=== PATIENT | female | born 1950 | race Two or more races ===

== ENCOUNTER → 2018-05-20 | Outpatient (CLI) | payer MEDICAID, OTHER ==
[~2018-05-20] MED LIST: OXAZEPAM
[2018-05-20 09:55] LABS: Urine Bacteria FEW /hpf (None Seen); Urine Blood Negative /uL (Negative); Urine Specific Gravity 1.015 (1.001-1.035); Urine WBC 16 /hpf (0 - 5)
[2018-05-20 09:56] LABS: Basophils # (auto) 0.1 uL; Basophils % (auto) 0.8 % (0.0-2.0); Eosinophils # (auto) 0.2 uL; Eosinophils % (auto) 3.3 % (0.0-7.0); Hematocrit 42.6 % (36.0-46.0); Hemoglobin 14.1 g/dL (12.2-16.2); Lymphocytes # (auto) 1.5 uL; Lymphocytes % (auto) 20.9 % (10.0-50.0); Mean Corpuscular Hemoglobin 29.8 pg (28.0-32.0); Mean Corpuscular Volume 90.4 fL (80.0-100.0); Monocytes # (auto) 0.4 uL; Monocytes % (auto) 5.8 % (0.0-12.0); Neutrophils % (auto) 69.2 % (37.0-80.0); Nucleated Red Blood Cells % 0.1 %; Platelet Count (auto) 275 10^3/uL (140-450); Red Blood Cells 4.72 10^6/uL (4.0-5.20); Red Cell Distribution Width 13.8 % (11.8-14.3); White Blood Cell 7.3 10^3/uL (4.4-10.8)
[2018-05-20 10:08] LABS: Calcium 9.3 mg/dL (8.5-10.1); Potassium 4.4 mmol/L (3.5-5.1)
[2018-05-20 10:09] LABS: Alcohol, Urine < 3.0 mg/dL (0-5); Amphetamine Screen, Urine NEGATIVE (NEGATIVE); Barbiturate Scree,Urine NEGATIVE (NEGATIVE); Benzodiazephine Screen, Urine POSITIVE (NEGATIVE); Cannabinoid Screen, Urine NEGATIVE (NEGATIVE); Opiate Scree,Urine NEGATIVE (NEGATIVE); Phencyclidine Screen, Urine NEGATIVE (NEGATIVE)
[2018-05-20 10:12] LABS: BUN/Creatinine Ratio 23.9; Bilirubin, Total 0.3 mg/dL (0.2-1.0)
[2018-05-20 10:16] LABS: Cocaine Screen, Urine NEGATIVE (NEGATIVE)
[2018-05-20 10:36] LABS: Folate (Folic Acid) 19.11 ng/mL (5.38-24)
== END | disposition home or self-care (01) ==
LOC: LAB 09:20
PROVIDERS: ATTEND Internal Medicine
DX: Z00.00 Encounter for general adult medical examination without abnormal findings (principal); I10 Essential (primary) hypertension; M54.5 Low back pain
CPT/HCPCS: 36415; 80053; 80061; 80307; 81001; 82607; 82746; 83036; 84439; 84443; 85025

== ENCOUNTER 2020-09-28 13:00 | Inpatient (IN) | payer OTHER ==
[~2020-09-28] VITALS: Ht 152.4 cm; Wt 82.6 kg
[2020-09-28] MEDS ORDERED: IPRATROPIUM BROM 0.5 MG/2.5ML INH SOL NEB ONE (13:30)
[2020-09-28] MEDS ORDERED: MAGNESIUM SULFATE 1GM/100ML 100 ML IV ONE (13:30)
[2020-09-28] MEDS ORDERED: methylPREDNISolone SOD SUCC 125 MG/2 ML VL IV ONE (13:30)
[2020-09-28] MEDS ORDERED: ALBUTEROL SULF 2.5 MG/0.5ML(0.5%) NEB SOLN NEB ONE (13:30)
[2020-09-28 13:56] LABS: Basophils # (auto) 0 10 ^3/uL (0-0.2); Eosinophils # (auto) 0 10 ^3/uL (0-0.8); Hemoglobin 10.3 g/dL (12.2-16.2); Nucleated Red Blood Cells % 0.1 %; Red Cell Distribution Width 17.5 % (11.8-14.3)
[2020-09-28 13:57] LABS: Basophils % (auto) 0.5 % (0.0-2.0); Eosinophils % (auto) 0.4 % (0.0-7.0); Hematocrit 32.2 % (36.0-46.0); Lymphocytes # (auto) 0.7 10 ^3/uL (0.4-5.4); Lymphocytes % (auto) 6.8 % (10.0-50.0); Mean Corpuscular Hemoglobin 25.9 pg (28.0-32.0); Mean Corpuscular Hgb Conc. 32.1 g/dL (32.0-36.0); Mean Corpuscular Volume 80.8 fL (80.0-100.0); Monocytes # (auto) 0.6 10 ^3/uL (0-1.3); Monocytes % (auto) 6.1 % (0.0-12.0); Neutrophils # (auto) 8.8 10 ^3/uL (1.6-8.6); Neutrophils % (auto) 86.2 % (37.0-80.0); Red Blood Cells 3.98 10^6/uL (4.0-5.20); White Blood Cell 10.2 10^3/uL (4.4-10.8)
[2020-09-28 14:19] LABS: Alanine Aminotransferase 38 U/L (13-56); Albumin 3.3 g/dL (3.4-5.0); Anion Gap 4 (5-15); Blood Urea Nitrogen 15 mg/dL (7-18); Calcium 7.9 mg/dL (8.5-10.1); Carbon Dioxide 29 mmol/L (21-32); Chloride 103 mmol/L (98-107); Glucose 112 mg/dL (74-106); Potassium 4.5 mmol/L (3.5-5.1); Sodium 136 mmol/L (136-145)
[2020-09-28 14:28] LABS: Alkaline Phosphatase 70 U/L (45-117); Aspartate Aminotransferase 19 U/L (15-37); BUN/Creatinine Ratio 15.3; Bilirubin, Total 0.3 mg/dL (0.2-1.0); CRP High Sensitivity 2.49 mg/dL (< 0.3); GFR African American 72 mL/min; GFR Non-African American 59 mL/min; Total Protein 7.7 g/dL (6.4-8.2)
[2020-09-28 14:32] LABS: Urine WBC None Seen /hpf (0 - 5)
[2020-09-28 14:44] LABS: Urine Bacteria FEW /hpf (None Seen); Urine Blood Negative /uL (Negative); Urine Specific Gravity 1.014 (1.001-1.035)
[2020-09-28] MEDS ORDERED: FUROSEMIDE 40 MG/4 ML VIAL IV ONE (17:30)
[2020-09-28] MEDS ORDERED: ENOXAPARIN SOD 80 MG/0.8ML SYRINGE SC ONE (17:30)
[2020-09-28] MEDS ORDERED: IOHEXOL 350 MG/ML 100ML IJ ONE (18:42)
[2020-09-28] MEDS ORDERED: MORPHINE SULF INJ 2 MG/ML SYRINGE 1ML IV PRN (18:45)
[2020-09-28] MEDS ORDERED: NITROGLYCERIN 0.4 MG SL TAB SL PRN (18:45)
[2020-09-28] MEDS ORDERED: ALBUTEROL SULF 2.5 MG/0.5ML(0.5%) NEB SOLN NEB PRN (19:15)
[2020-09-28] MEDS ORDERED: ONDANSETRON HCL 4 MG/2 ML VIAL IV PRN (19:15)
[2020-09-28] MEDS ORDERED: DEXTROSE (50%) 50ML SYRG IV PRN (19:15)
[2020-09-28] MEDS ORDERED: traMADol HCL 50 MG TAB PO PRN (19:15)
[2020-09-28] MEDS ORDERED: levoFLOXacin 500MG 100 ML IV ONE (19:15)
[2020-09-28] MEDS ORDERED: LACTULOSE 20Gm/30ML SOLN PO PRN ×2 (19:15)
[2020-09-28] MEDS ORDERED: ACETAMINOPHEN 500 MG TAB PO PRN (19:15)
[2020-09-28 19:41] VITALS: BP 113/80
[2020-09-28 22:00] VITALS: BP 115/60
[2020-09-28] MEDS ORDERED: SODIUM CHLOR 0.9% PF (SALINE LOCK) 10ML VIAL/SYR IV SCH (22:00)
[2020-09-28] MEDS: SODIUM CHLOR 0.9% PF (SALINE LOCK) 10ML VIAL/SYR IV SCH (22:00)
[2020-09-28] MEDS: ACCU-CHEK COMFORT CURVE STRIP VI SCH (22:00)
[2020-09-28 22:31] VITALS: BP 139/65
[2020-09-28] MEDS: ATORVASTATIN 20 MG TAB PO SCH (23:42)
[2020-09-28] MEDS: FAMOTIDINE 20 MG TAB PO SCH (23:42)
[2020-09-28] MEDS: CARVEDILOL 3.125 MG TAB PO SCH (23:43)
[2020-09-28] MEDS: IPRATROPIUM BROM 0.5 MG/2.5ML INH SOL NEB SCH (23:43)
[2020-09-28] MEDS: ALBUTEROL SULF 2.5 MG/0.5ML(0.5%) NEB SOLN NEB SCH (23:44)
[2020-09-29] MEDS ORDERED: PNEUMOCOCCAL VACC POLYS 25 MCG/0.5 ML VIAL IM ONE (02:00)
[2020-09-29 05:00] VITALS: BP 129/63
[2020-09-29 05:43] LABS: Basophils # (auto) 0 10 ^3/uL (0-0.2); Eosinophils # (auto) 0 10 ^3/uL (0-0.8); Hemoglobin 10.3 g/dL (12.2-16.2); Lymphocytes # (auto) 0.5 10 ^3/uL (0.4-5.4); Monocytes # (auto) 0.2 10 ^3/uL (0-1.3); White Blood Cell 7.7 10^3/uL (4.4-10.8)
[2020-09-29 05:45] LABS: Basophils % (auto) 0.3 % (0.0-2.0); Hematocrit 31.3 % (36.0-46.0); Mean Corpuscular Hemoglobin 26.6 pg (28.0-32.0); Mean Corpuscular Volume 80.7 fL (80.0-100.0); Monocytes % (auto) 3.2 % (0.0-12.0); Neutrophils % (auto) 90.5 % (37.0-80.0); Nucleated Red Blood Cells % 0.2 %; Red Blood Cells 3.88 10^6/uL (4.0-5.20); Red Cell Distribution Width 17.3 % (11.8-14.3)
[2020-09-29] MEDS: SODIUM CHLOR 0.9% PF (SALINE LOCK) 10ML VIAL/SYR IV SCH ×3 (05:51→22:11)
[2020-09-29 06:10] LABS: Chloride 102 mmol/L (98-107); Potassium 4.2 mmol/L (3.5-5.1); Sodium 136 mmol/L (136-145)
[2020-09-29 06:19] LABS: Alanine Aminotransferase 31 U/L (13-56); Albumin 2.9 g/dL (3.4-5.0); Alkaline Phosphatase 63 U/L (45-117); Anion Gap 5 (5-15); Aspartate Aminotransferase 14 U/L (15-37); BUN/Creatinine Ratio 19.8; Bilirubin, Total 0.2 mg/dL (0.2-1.0); Blood Urea Nitrogen 23 mg/dL (7-18); Calcium 7.9 mg/dL (8.5-10.1); Carbon Dioxide 29 mmol/L (21-32); GFR African American 59 mL/min; GFR Non-African American 49 mL/min; Glucose 146 mg/dL (74-106)
[2020-09-29] MEDS: ACCU-CHEK COMFORT CURVE STRIP VI SCH ×4 (06:44→22:13)
[2020-09-29] MEDS: ALBUTEROL SULF 2.5 MG/0.5ML(0.5%) NEB SOLN NEB SCH ×3 (06:59→19:35)
[2020-09-29] MEDS: IPRATROPIUM BROM 0.5 MG/2.5ML INH SOL NEB SCH ×3 (07:01→19:35)
[2020-09-29 08:00] VITALS: BP 129/77
[2020-09-29 09:00] VITALS: BP 129/77
[2020-09-29] MEDS ORDERED: NITROGLYCERIN 0.2MG/HR TOPICAL PATCH TD SCH (10:00)
[2020-09-29] MEDS ORDERED: ENOXAPARIN SOD 40 MG/0.4 ML SYRINGE SC SCH (10:00)
[2020-09-29] MEDS: FUROSEMIDE 40 MG/4 ML VIAL IV SCH (10:56)
[2020-09-29] MEDS: levoFLOXacin 500MG 100 ML IV SCH (10:56)
[2020-09-29] MEDS: FAMOTIDINE 20 MG TAB PO SCH ×2 (10:57→22:13)
[2020-09-29] MEDS: ASPirin 81 mg TAB PO SCH (10:57)
[2020-09-29] MEDS: POTASSIUM CHL 20 Meq TABLET PO SCH (10:57)
[2020-09-29] MEDS: CARVEDILOL 3.125 MG TAB PO SCH ×2 (10:57→22:12)
[2020-09-29] MEDS: ENALAPRIL MALEATE 2.5 MG TAB PO SCH (10:58)
[2020-09-29] MEDS: ENOXAPARIN SOD 40 MG/0.4 ML SYRINGE SC SCH (10:59)
[2020-09-29] MEDS ORDERED: OME20GT GT (11:27)
[2020-09-29] MEDS ORDERED: LOSA25TA38 PO (11:27)
[2020-09-29] MEDS ORDERED: ESCI-34 PO (11:27)
[2020-09-29] MEDS ORDERED: MIRT-66 PO (11:27)
[2020-09-29] MEDS ORDERED: AMLO-489 PO (12:25)
[2020-09-29] MEDS ORDERED: TRIA75TA55 PO (12:25)
[2020-09-29 13:00] VITALS: BP 118/60
[2020-09-29 17:00] VITALS: BP 114/63
[2020-09-29] MEDS ORDERED: CITALOPRAM HYDROBR 20 MG TAB PO ONE ×3 (17:00→17:15)
[2020-09-29 22:00] VITALS: BP 136/66
[2020-09-29] MEDS: MIRTAZAPINE 30 MG TAB PO SCH (22:11)
[2020-09-29] MEDS: ATORVASTATIN 20 MG TAB PO SCH (22:13)
[2020-09-30] MEDS: IPRATROPIUM BROM 0.5 MG/2.5ML INH SOL NEB SCH ×5 (00:20→23:56)
[2020-09-30] MEDS: ALBUTEROL SULF 2.5 MG/0.5ML(0.5%) NEB SOLN NEB SCH ×5 (00:20→23:55)
[2020-09-30 05:00] VITALS: BP 116/59
[2020-09-30] MEDS: SODIUM CHLOR 0.9% PF (SALINE LOCK) 10ML VIAL/SYR IV SCH ×3 (06:03→22:11)
[2020-09-30] MEDS: ACCU-CHEK COMFORT CURVE STRIP VI SCH ×4 (06:51→22:13)
[2020-09-30 09:00] VITALS: BP 132/73
[2020-09-30] MEDS ORDERED: TRIATAB3 PO (10:33)
[2020-09-30] MEDS ORDERED: OMEP-263 PO (10:33)
[2020-09-30] MEDS ORDERED: OMEGCAP2 PO (10:33)
[2020-09-30] MEDS ORDERED: ATOR10TA PO (10:33)
[2020-09-30] MEDS: FUROSEMIDE 40 MG/4 ML VIAL IV SCH ×2 (10:35→18:05)
[2020-09-30] MEDS: ASPirin 81 mg TAB PO SCH (10:36)
[2020-09-30] MEDS: ENOXAPARIN SOD 40 MG/0.4 ML SYRINGE SC SCH (10:36)
[2020-09-30] MEDS: levoFLOXacin 500MG 100 ML IV SCH (10:36)
[2020-09-30] MEDS: ENALAPRIL MALEATE 2.5 MG TAB PO SCH (10:37)
[2020-09-30] MEDS: FAMOTIDINE 20 MG TAB PO SCH ×2 (10:37→22:11)
[2020-09-30] MEDS: CARVEDILOL 3.125 MG TAB PO SCH ×2 (10:37→22:12)
[2020-09-30] MEDS: CITALOPRAM HYDROBR 20 MG TAB PO SCH (10:37)
[2020-09-30] MEDS: POTASSIUM CHL 20 Meq TABLET PO SCH (10:38)
[2020-09-30] MEDS ORDERED: AMLO-496 PO (10:44)
[2020-09-30 13:00] VITALS: BP 139/70
[2020-09-30 14:38] LABS: INR 1.03 (0.9-1.15)
[2020-09-30 17:00] VITALS: BP 122/71
[2020-09-30 22:00] VITALS: BP 147/68
[2020-09-30] MEDS: ATORVASTATIN 20 MG TAB PO SCH (22:11)
[2020-09-30] MEDS: MIRTAZAPINE 30 MG TAB PO SCH (22:11)
[2020-10-01 05:00] VITALS: BP 125/67
[2020-10-01] MEDS: SODIUM CHLOR 0.9% PF (SALINE LOCK) 10ML VIAL/SYR IV SCH ×3 (06:01→21:42)
[2020-10-01 06:07] LABS: Calcium 8.2 mg/dL (8.5-10.1); Potassium 3.7 mmol/L (3.5-5.1)
[2020-10-01] MEDS: FUROSEMIDE 40 MG/4 ML VIAL IV SCH ×2 (06:22→17:26)
[2020-10-01] MEDS: ALBUTEROL SULF 2.5 MG/0.5ML(0.5%) NEB SOLN NEB SCH ×3 (06:53→18:59)
[2020-10-01] MEDS: IPRATROPIUM BROM 0.5 MG/2.5ML INH SOL NEB SCH ×3 (06:53→18:59)
[2020-10-01] MEDS: ACCU-CHEK COMFORT CURVE STRIP VI SCH ×4 (07:00→21:42)
[2020-10-01 09:00] VITALS: BP 136/71
[2020-10-01] MEDS: ENOXAPARIN SOD 40 MG/0.4 ML SYRINGE SC SCH (10:40)
[2020-10-01] MEDS: levoFLOXacin 500MG 100 ML IV SCH (10:41)
[2020-10-01] MEDS: ASPirin 81 mg TAB PO SCH (10:41)
[2020-10-01] MEDS: POTASSIUM CHL 20 Meq TABLET PO SCH (10:41)
[2020-10-01] MEDS: ENALAPRIL MALEATE 2.5 MG TAB PO SCH (10:42)
[2020-10-01] MEDS: FAMOTIDINE 20 MG TAB PO SCH ×2 (10:42→21:41)
[2020-10-01] MEDS: CITALOPRAM HYDROBR 20 MG TAB PO SCH (10:43)
[2020-10-01] MEDS: CARVEDILOL 3.125 MG TAB PO SCH ×2 (10:44→21:41)
[2020-10-01 13:00] VITALS: BP 159/74
[2020-10-01 17:00] VITALS: BP 134/69
[2020-10-01] MEDS: ATORVASTATIN 20 MG TAB PO SCH (21:41)
[2020-10-01] MEDS: MIRTAZAPINE 30 MG TAB PO SCH (21:41)
[2020-10-01 22:00] VITALS: BP 142/70
[2020-10-02] MEDS: IPRATROPIUM BROM 0.5 MG/2.5ML INH SOL NEB SCH ×2 (00:36→07:06)
[2020-10-02] MEDS: ALBUTEROL SULF 2.5 MG/0.5ML(0.5%) NEB SOLN NEB SCH ×2 (00:36→07:06)
[2020-10-02 01:57] VITALS: BP 142/70
[2020-10-02 05:00] VITALS: BP 130/67
[2020-10-02] MEDS: FUROSEMIDE 40 MG/4 ML VIAL IV SCH (05:40)
[2020-10-02] MEDS: SODIUM CHLOR 0.9% PF (SALINE LOCK) 10ML VIAL/SYR IV SCH ×2 (05:40→15:24)
[2020-10-02] MEDS: ACCU-CHEK COMFORT CURVE STRIP VI SCH ×2 (06:27→12:11)
[2020-10-02 09:00] VITALS: BP 127/69
[2020-10-02] MEDS: levoFLOXacin 500MG 100 ML IV SCH (09:20)
[2020-10-02] MEDS: POTASSIUM CHL 20 Meq TABLET PO SCH (09:21)
[2020-10-02] MEDS: ENOXAPARIN SOD 40 MG/0.4 ML SYRINGE SC SCH (09:21)
[2020-10-02] MEDS: ENALAPRIL MALEATE 2.5 MG TAB PO SCH (09:22)
[2020-10-02] MEDS: CARVEDILOL 3.125 MG TAB PO SCH (09:22)
[2020-10-02] MEDS: CITALOPRAM HYDROBR 20 MG TAB PO SCH (09:23)
[2020-10-02] MEDS: ASPirin 81 mg TAB PO SCH (09:23)
[2020-10-02] MEDS: FAMOTIDINE 20 MG TAB PO SCH (09:23)
[2020-10-02] MEDS ORDERED: POTA10TA51 PO (12:58)
[2020-10-02] MEDS ORDERED: FURO40TA4 PO (12:58)
[2020-10-02] MEDS ORDERED: CAR3125T PO (12:58)
[2020-10-02 13:00] VITALS: BP 124/68
[2020-10-02 14:44] VITALS: BP 127/69
== END 2020-10-02 15:20 | disposition home or self-care (01) | DRG 291 ==
LOC: EDBD 13:00 → ER 13:00 → TELE 18:33 → TELE-WESTW 22:30
PROVIDERS: ADMIT Internal Medicine; ATTEND Hospitalist
DX: I11.0 Hypertensive heart disease with heart failure (principal); J96.01 Acute respiratory failure with hypoxia; J98.11 Atelectasis; I31.3 Pericardial effusion (noninflammatory); Z20.822 Contact with and (suspected) exposure to COVID-19; I50.43 Acute on chronic combined systolic (congestive) and diastolic (congestive) heart failure; J44.9 Chronic obstructive pulmonary disease, unspecified; D63.8 Anemia in other chronic diseases classified elsewhere; E66.01 Morbid (severe) obesity due to excess calories; I27.20 Pulmonary hypertension, unspecified; F03.90 Unspecified dementia, unspecified severity, without behavioral disturbance, psychotic disturbance, mood disturbance, and anxiety; Z79.899 Other long term (current) drug therapy; Z80.1 Family history of malignant neoplasm of trachea, bronchus and lung; Z85.118 Personal history of other malignant neoplasm of bronchus and lung; Z28.21 Immunization not carried out because of patient refusal; Z68.35 Body mass index [BMI] 35.0-35.9, adult
CPT/HCPCS: 36415; 36600; 71045; 71275; 76604; 80048; 80053; 81001; 82550; 82728; 82805; 82962; 83036; 83880; 84484; 85025; 85379; 85610; 85730; 86141; 87426; 93005; 93306; 94640; 96365; 96372; 96375; 97116; 97163; 97530; G0378; J1956

== ENCOUNTER 2023-03-07 16:26 | Inpatient (IN) | payer OTHER ==
[~2023-03-07] VITALS: Ht 149.9 cm; Wt 81.8 kg
[~2023-03-07 16:26] MED LIST changes: +ATOR10TA PO; +CAR3125T PO; +ESCI1TAB37 PO; +FURO40TA4 PO; +LOSA25TA15 PO; +MIRT-94 PO; +OMEGCAP2 PO; +OMEP-448 PO; -OXAZEPAM; +POTA10TA51 PO
[2023-03-07 16:35] VITALS: PULSE 93; RESP 17; O2SAT 97
[2023-03-07] MEDS ORDERED: IPRATROPIUM BROM 0.5 MG/2.5ML INH SOL HHN ONE (16:45)
[2023-03-07] MEDS ORDERED: methylPREDNISolone SOD SUCC 125 MG/2 ML VL IV ONE (16:45)
[2023-03-07] MEDS ORDERED: ALBUTEROL SULF 2.5 MG/0.5ML(0.5%) NEB SOLN HHN ONE (16:45)
[2023-03-07 17:50] LABS: Chloride 95 mmol/L (98-107); Potassium 4.3 mmol/L (3.5-5.1); Sodium 139 mmol/L (136-145)
[2023-03-07 17:51] LABS: Anion Gap 5 (5-15); Basophils # (auto) 0 10 ^3/uL (0-0.2); Basophils % (auto) 0.2 % (0.0-2.0); Carbon Dioxide 39 mmol/L (20-30); Eosinophils # (auto) 0 10 ^3/uL (0-0.8); Hematocrit 38.7 % (36.0-46.0); Lymphocytes # (auto) 0.3 10 ^3/uL (0.4-5.4); Lymphocytes % (auto) 3.6 % (10.0-50.0); Mean Corpuscular Hemoglobin 27.2 pg (28.0-32.0); Mean Corpuscular Volume 87.7 fL (80.0-100.0); Monocytes # (auto) 0 10 ^3/uL (0-1.3); Monocytes % (auto) 0.6 % (0.0-12.0); Neutrophils # (auto) 6.9 10 ^3/uL (1.6-8.6); Neutrophils % (auto) 95.6 % (37.0-80.0); Red Blood Cells 4.42 10^6/uL (4.0-5.20); Red Cell Distribution Width 14.8 % (11.8-14.3); White Blood Cell 7.2 10^3/uL (4.4-10.8)
[2023-03-07 17:52] LABS: Calcium 8.8 mg/dL (8.7-10.4)
[2023-03-07 17:56] LABS: Glucose 296 mg/dL (74-106)
[2023-03-07 17:57] LABS: BUN/Creatinine Ratio 25.6 (10.0-20.0); Blood Urea Nitrogen 23 mg/dL (9-23)
[2023-03-07] MEDS ORDERED: FUROSEMIDE 40 MG/4 ML VIAL IV ONE (18:30)
[2023-03-07 18:39] LABS: Base Excess 13.3 mmol/L (-2.0-2.0)
[2023-03-07 19:00] VITALS: PULSE 112; O2SAT 95
[2023-03-07 19:45] VITALS: PULSE 101; RESP 17; O2SAT 94
[2023-03-07 19:57] LABS: COVID19 ANTIGEN SOFIA FIA NEGATIVE (NEGATIVE); Rapid Influenza A Negative (Negative); Rapid Influenza B Negative (Negative)
[2023-03-07 21:38] LABS: Base Excess 8.6 mmol/L (-2.0-2.0)
[2023-03-07 22:28] VITALS: BP 133/70; PULSE 101; RESP 17; TEMP 98.2; O2SAT 94
[2023-03-07 23:43] VITALS: PULSE 92; RESP 18; O2SAT 95
[2023-03-07 23:51] VITALS: PULSE 96; RESP 20; O2SAT 96
[2023-03-08] VITALS (13 sets, daily range): BP systolic 144–162; BP diastolic 69–79; PULSE 81–113; RESP 14–20; TEMP 97.5–98.5; O2SAT 92–97
[2023-03-08] MEDS ORDERED: IPRATROPIUM BROM 0.5 MG/2.5ML INH SOL NEB SCH
[2023-03-08] MEDS ORDERED: ALBUTEROL SULF 2.5 MG/0.5ML(0.5%) NEB SOLN NEB SCH
[2023-03-08] MEDS ORDERED: ACETAMINOPHEN 325 MG TAB PO PRN (00:45)
[2023-03-08] MEDS: levoFLOXacin 500MG 100 ML IV SCH ×2 (01:33→22:40)
[2023-03-08] MEDS ORDERED: hydrALAZINE HCL 20 MG/ML VL IV PRN (02:45)
[2023-03-08] MEDS ORDERED: CARVEDILOL 3.125 MG TAB PO ONE (02:45)
[2023-03-08 04:32] LABS: Urine WBC None Seen /hpf (0 - 5)
[2023-03-08 04:52] LABS: Urine Bacteria NONE SEEN /hpf (None Seen); Urine Blood Negative /uL (Negative); Urine Clarity Clear (Clear); Urine Color Colorless (Yellow); Urine Protein, UAD Negative (Negative); Urine Specific Gravity 1.023 (1.001-1.035); Urine Urobilinogen Normal (Negative); Urine pH 5.5 (5.0-8.0)
[2023-03-08] MEDS: IPRATROPIUM BROM 0.5 MG/2.5ML INH SOL NEB SCH ×3 (06:28→18:57)
[2023-03-08] MEDS: ALBUTEROL SULF 2.5 MG/0.5ML(0.5%) NEB SOLN NEB SCH ×3 (06:28→18:58)
[2023-03-08] MEDS ORDERED: OMEP20TA PO (07:03)
[2023-03-08] MEDS ORDERED: CHOL20007 OR (07:03)
[2023-03-08] MEDS ORDERED: ESCI1TAB37 PO (07:03)
[2023-03-08] MEDS ORDERED: ATOR20TA PO (07:03)
[2023-03-08] MEDS: methylPREDNISolone SOD SUCC 40 MG/ML VL IV SCH ×2 (09:31→22:40)
[2023-03-08] MEDS: LOSARTAN POTASSIUM 25 MG TAB PO SCH ×2 (09:32→10:30)
[2023-03-08] MEDS ORDERED: CARVEDILOL 3.125 MG TAB PO SCH (10:00)
[2023-03-08] MEDS ORDERED: LACTULOSE 20Gm/30ML SOLN PO PRN (15:30)
[2023-03-08] MEDS ORDERED: ATORVASTATIN 20 MG TAB PO SCH (22:00)
[2023-03-08] MEDS: CARVEDILOL 3.125 MG TAB PO SCH (22:41)
[2023-03-09] VITALS (9 sets, daily range): BP systolic 140–161; BP diastolic 76–80; PULSE 68–89; RESP 16–22; TEMP 97.6–97.8; O2SAT 92–96
[2023-03-09] MEDS: IPRATROPIUM BROM 0.5 MG/2.5ML INH SOL NEB SCH ×2 (05:54→12:39)
[2023-03-09] MEDS: ALBUTEROL SULF 2.5 MG/0.5ML(0.5%) NEB SOLN NEB SCH ×2 (05:54→12:39)
[2023-03-09 06:00] LABS: Anion Gap 4 (5-15); Carbon Dioxide 38 mmol/L (20-30); Chloride 97 mmol/L (98-107); Potassium 4.2 mmol/L (3.5-5.1); Sodium 139 mmol/L (136-145)
[2023-03-09] MEDS ORDERED: FUROSEMIDE 20 MG TAB PO SCH (06:00)
[2023-03-09 06:01] LABS: Calcium 9.6 mg/dL (8.5-10.1)
[2023-03-09 06:06] LABS: BUN/Creatinine Ratio 23.4 (10.0-20.0); Blood Urea Nitrogen 25 mg/dL (9-23); Glucose 155 mg/dL (74-106)
[2023-03-09] MEDS ORDERED: PRED20TA2 PO (09:04)
[2023-03-09] MEDS ORDERED: LEVO500T91 PO (09:04)
[2023-03-09] MEDS ORDERED: ALBU1.258 IN (09:04)
[2023-03-09] MEDS: methylPREDNISolone SOD SUCC 40 MG/ML VL IV SCH (09:19)
[2023-03-09] MEDS: LOSARTAN POTASSIUM 25 MG TAB PO SCH (09:20)
[2023-03-09] MEDS: CARVEDILOL 3.125 MG TAB PO SCH (09:21)
[2023-03-09] MEDS ORDERED: PANTOPRAZOLE 40 MG TAB PO SCH (10:00)
== END 2023-03-09 14:36 | disposition home health service (06) | DRG 189 ==
LOC: ER 16:26 → EDBD 16:26 → TELE 03-08 00:35 → TELE-WESTW 03-08 17:16
PROVIDERS: ADMIT Internal Medicine; ATTEND Internal Medicine
PROC: 5A09357 Assistance with Respiratory Ventilation, Less than 24 Consecutive Hours, Continuous Positive Airway Pressure (ICD-10-PCS; principal; 2023-03-08)
DX: J96.21 Acute and chronic respiratory failure with hypoxia (principal); J44.1 Chronic obstructive pulmonary disease with (acute) exacerbation; J98.11 Atelectasis; J81.1 Chronic pulmonary edema; J96.22 Acute and chronic respiratory failure with hypercapnia; K21.9 Gastro-esophageal reflux disease without esophagitis; F32.9 Major depressive disorder, single episode, unspecified; F41.9 Anxiety disorder, unspecified; G47.33 Obstructive sleep apnea (adult) (pediatric); E66.9 Obesity, unspecified; I48.91 Unspecified atrial fibrillation; I12.9 Hypertensive chronic kidney disease with stage 1 through stage 4 chronic kidney disease, or unspecified chronic kidney disease; N18.9 Chronic kidney disease, unspecified; Z20.822 Contact with and (suspected) exposure to COVID-19; E78.5 Hyperlipidemia, unspecified; R53.81 Other malaise; Z68.36 Body mass index [BMI] 36.0-36.9, adult; Z85.118 Personal history of other malignant neoplasm of bronchus and lung; Z88.5 Allergy status to narcotic agent; Z79.899 Other long term (current) drug therapy; Z80.1 Family history of malignant neoplasm of trachea, bronchus and lung; Z90.710 Acquired absence of both cervix and uterus; Z99.81 Dependence on supplemental oxygen
CPT/HCPCS: 36415; 36600; 71045; 80048; 81001; 82805; 82962; 83605; 83735; 83880; 84484; 85025; 85379; 87040; 87081; 87426; 87804; 93005; 94640; 94660; 96374; 96375; 97110; 97116; 97163; 97530; 99291; G0378; J1956

== ENCOUNTER 2023-10-09 05:26 | Inpatient (IN) | payer OTHER ==
[2023-10-09] VITALS (7 sets, daily range): BP systolic 138–150; BP diastolic 69–79; PULSE 72–94; RESP 19–22; TEMP 98.7–98.9; O2SAT 94–96
[~2023-10-09] VITALS: Ht 152.4 cm; Wt 77.0 kg
[~2023-10-09 05:26] MED LIST changes: +ALBU1.258 IN; -ATOR10TA PO; +ATOR20TA PO; -CAR3125T PO; +CARV-214 PO; +CHOL20007 OR; +LEVO500T91 PO; +LOSA-533 PO; -LOSA25TA15 PO; +POTA-36 PO; -POTA10TA51 PO; +PRED20TA2 PO
[2023-10-09] MEDS: SODIUM CHLORIDE 0.9% 1,000 ML IV ONE (07:50)
[2023-10-09 07:58] LABS: Hematocrit 34.3 % (36.0-46.0); Hemoglobin 11.2 g/dL (12.2-16.2); Mean Corpuscular Hemoglobin 28.9 pg (28.0-32.0); Mean Corpuscular Hgb Conc. 32.7 g/dL (32.0-36.0); Mean Corpuscular Volume 88.3 fL (80.0-100.0); Red Blood Cells 3.89 10^6/uL (4.0-5.20); Red Cell Distribution Width 16.3 % (11.8-14.3)
[2023-10-09 08:08] LABS: Basophils % (manual) 0 (0.0-2.0); Blast Cells 0; Eosinophils % (manual) 0 (0-7); Metamyelocytes % 0; Myelocytes % 0; Promyelocytes % 0; Reactive Lymphocytes 0
[2023-10-09 08:17] LABS: INR 1.06 (0.9-1.15); Prothrombin Time 11.2 sec (9.3-11.8)
[2023-10-09 08:18] LABS: Alanine Aminotransferase 25 U/L (7-40); Albumin 3.8 g/dL (3.2-4.8); Alkaline Phosphatase 60 U/L (46-116); Aspartate Aminotransferase 21 U/L (13-40); BUN/Creatinine Ratio 24.4 (10.0-20.0); Blood Urea Nitrogen 19 mg/dL (9-23); Chloride 96 mmol/L (98-107); Glucose 124 mg/dL (74-106); Magnesium 1.9 mg/dL (1.6-2.6); Sodium 140 mmol/L (136-145)
[2023-10-09 08:19] LABS: Band Neutrophils % (manual) 4; Bilirubin, Total 0.4 mg/dL (0.2-1.0); Lymphocytes % (manual) 5 (10.0-50.0); Monocytes % (manual) 13 (0-12); Total Protein 6.4 g/dL (5.7-8.2)
[2023-10-09 08:20] LABS: Anisocytosis Slight; Platelet Estimate Adequate
[2023-10-09 08:33] LABS: Anion Gap 3.99999 (5-15); Carbon Dioxide > 40 mmol/L (20-30)
[2023-10-09] MEDS: POTASSIUM EFFERVESENT TAB 25 MEQ PO ONE ×2 (09:28→17:40)
[2023-10-09] MEDS: IOHEXOL 350 MG/ML 100ML IJ ONE ×2 (10:40→12:29)
[2023-10-09 10:41] LABS: Urine Bacteria FEW /hpf (None Seen); Urine Blood Negative /uL (Negative); Urine Clarity Clear (Clear); Urine Color Light-Yellow (Yellow); Urine Protein, UAD Negative (Negative); Urine Specific Gravity 1.012 (1.001-1.035); Urine Urobilinogen Normal (Negative); Urine WBC <1 /hpf (0 - 5)
[2023-10-09] MEDS ORDERED: DOCUSATE SOD 100 MG CAP PO PRN (13:30)
[2023-10-09] MEDS ORDERED: ONDANSETRON HCL 4 MG/2 ML VIAL IV PRN (13:30)
[2023-10-09] MEDS ORDERED: ACETAMINOPHEN 325 MG TAB PO PRN (13:30)
[2023-10-09] MEDS ORDERED: hydrALAZINE HCL 20 MG/ML VL IV PRN (13:30)
[2023-10-09] MEDS: FUROSEMIDE 40 MG/4 ML VIAL IV ONE (17:39)
[2023-10-09] MEDS: methylPREDNISolone SOD SUCC 125 MG/2 ML VL IV ONE (17:39)
[2023-10-09] MEDS: levoFLOXacin 500MG 100 ML IV SCH (17:40)
[2023-10-09] MEDS: FUROSEMIDE 40 MG/4 ML VIAL IV SCH (18:00)
[2023-10-09] MEDS ORDERED: IPRATROPIUM BROM 0.5 MG/2.5ML INH SOL NEB SCH (18:00)
[2023-10-09] MEDS: IPRATROPIUM BROM 0.5 MG/2.5ML INH SOL NEB SCH (18:36)
[2023-10-09] MEDS: CARVEDILOL 3.125 MG TAB PO SCH (21:42)
[2023-10-09] MEDS: ATORVASTATIN 20 MG TAB PO SCH (21:43)
[2023-10-09] MEDS: methylPREDNISolone SOD SUCC 40 MG/ML VL IV SCH (21:43)
[2023-10-09] MEDS: MELATONIN 5 MG TAB PO ONE (23:00)
[2023-10-10] VITALS (15 sets, daily range): BP systolic 115–151; BP diastolic 63–68; PULSE 65–92; RESP 16–22; TEMP 96.6–98.3; O2SAT 90–98
[2023-10-10] MEDS: PANTOPRAZOLE 40 MG TAB PO SCH (05:45)
[2023-10-10 08:42] LABS: Base Excess 11.5 mmol/L (-2.0-2.0)
[2023-10-11] VITALS (11 sets, daily range): BP systolic 133–157; BP diastolic 45–77; PULSE 65–76; RESP 14–22; TEMP 97.8–98.1; O2SAT 88–100
[2023-10-11 11:09] LABS: Chloride 94 mmol/L (98-107); Potassium 3.8 mmol/L (3.5-5.1); Sodium 138 mmol/L (136-145)
[2023-10-11 11:10] LABS: Calcium 8.9 mg/dL (8.7-10.4)
[2023-10-11 11:15] LABS: BUN/Creatinine Ratio 28.4 (10.0-20.0); Blood Urea Nitrogen 33 mg/dL (9-23); Glucose 158 mg/dL (74-106)
[2023-10-11 11:45] LABS: Anion Gap 3.99999 (5-15)
[2023-10-11 11:47] LABS: Carbon Dioxide > 40 mmol/L (20-30)
[2023-10-11] MEDS ORDERED: LEVO500T91 PO (13:27)
[2023-10-11] MEDS ORDERED: PRED20TA2 PO (13:27)
[2023-10-12] MEDS ORDERED: levoFLOXacin 250MG 50 ML IV SCH (10:00)
== END 2023-10-11 17:40 | disposition home health service (06) | DRG 189 ==
LOC: ER 05:26 → EDUNIT# 05:26 → EDBD 05:26 → TELE 13:37 → TELE-EAST 15:30
PROVIDERS: ADMIT Internal Medicine; ATTEND Internal Medicine
DX: J96.21 Acute and chronic respiratory failure with hypoxia (principal); J15.69 Pneumonia due to other Gram-negative bacteria; J44.1 Chronic obstructive pulmonary disease with (acute) exacerbation; J44.0 Chronic obstructive pulmonary disease with (acute) lower respiratory infection; C34.11 Malignant neoplasm of upper lobe, right bronchus or lung; E87.29 Other acidosis; I13.0 Hypertensive heart and chronic kidney disease with heart failure and stage 1 through stage 4 chronic kidney disease, or unspecified chronic kidney disease; J96.22 Acute and chronic respiratory failure with hypercapnia; E87.6 Hypokalemia; E66.9 Obesity, unspecified; K21.9 Gastro-esophageal reflux disease without esophagitis; E78.5 Hyperlipidemia, unspecified; I48.0 Paroxysmal atrial fibrillation; F32.9 Major depressive disorder, single episode, unspecified; N18.9 Chronic kidney disease, unspecified; I50.9 Heart failure, unspecified; Z90.710 Acquired absence of both cervix and uterus; Z80.1 Family history of malignant neoplasm of trachea, bronchus and lung; Z88.5 Allergy status to narcotic agent; Z91.010 Allergy to peanuts; Z68.35 Body mass index [BMI] 35.0-35.9, adult
CPT/HCPCS: 36415; 36600; 71045; 71275; 80048; 80053; 81001; 82805; 83735; 83880; 84484; 85007; 85027; 85379; 85610; 85730; 87040; 87081; 93005; 93306; 93970; 94640; 96361; 96374; G0378; J1956

== ENCOUNTER 2023-10-14 05:18 | Emergency (ER) | payer OTHER ==
[~2023-10-14] VITALS: Ht 149.9 cm; Wt 77.1 kg
[~2023-10-14 05:18] MED LIST changes: -LOSA-533 PO
[2023-10-14 06:00] VITALS: PULSE 69; RESP 27
[2023-10-14 07:02] LABS: Basophils # (auto) 0 10 ^3/uL (0-0.2); Basophils % (auto) 0.2 % (0.0-2.0); Eosinophils # (auto) 0 10 ^3/uL (0-0.8); Eosinophils % (auto) 0.1 % (0.0-7.0); Hematocrit 34.7 % (36.0-46.0); Hemoglobin 10.9 g/dL (12.2-16.2); Lymphocytes # (auto) 0.5 10 ^3/uL (0.4-5.4); Lymphocytes % (auto) 4.6 % (10.0-50.0); Mean Corpuscular Hemoglobin 27.8 pg (28.0-32.0); Mean Corpuscular Hgb Conc. 31.4 g/dL (32.0-36.0); Mean Corpuscular Volume 88.6 fL (80.0-100.0); Monocytes # (auto) 0.8 10 ^3/uL (0-1.3); Monocytes % (auto) 7.3 % (0.0-12.0); Neutrophils # (auto) 9.6 10 ^3/uL (1.6-8.6); Neutrophils % (auto) 87.8 % (37.0-80.0); Platelet Count (auto) 190 10^3/uL (140-450); Red Blood Cells 3.91 10^6/uL (4.0-5.20); Red Cell Distribution Width 17.1 % (11.8-14.3); White Blood Cell 10.9 10^3/uL (4.4-10.8)
[2023-10-14 07:18] VITALS: PULSE 66; RESP 16; O2SAT 96
[2023-10-14 07:20] LABS: Alanine Aminotransferase 29 U/L (7-40); Albumin 3.2 g/dL (3.2-4.8); Alkaline Phosphatase 46 U/L (46-116); Aspartate Aminotransferase 17 U/L (13-40); BUN/Creatinine Ratio 23.3 (10.0-20.0); Bilirubin, Total 0.4 mg/dL (0.2-1.0); Blood Urea Nitrogen 21 mg/dL (9-23); Calcium 8.7 mg/dL (8.7-10.4); Chloride 100 mmol/L (98-107); Glucose 104 mg/dL (74-106); Potassium 3.4 mmol/L (3.5-5.1); Sodium 142 mmol/L (136-145); Total Protein 5.7 g/dL (5.7-8.2)
[2023-10-14 07:24] LABS: Anion Gap 1.99999 (5-15)
[2023-10-14 07:27] LABS: Carbon Dioxide > 40 mmol/L (20-30)
[2023-10-14 07:31] LABS: INR 1.05 (0.9-1.15); Partial Thromboplastin Time 25.4 SEC (24.5-34.5); Prothrombin Time 11.1 sec (9.3-11.8)
[2023-10-14 07:52] LABS: COVID19 ANTIGEN SOFIA FIA NEGATIVE (NEGATIVE)
[2023-10-14] MEDS: AZITHROMYCIN 500MG/ 250ML 250 ML IV ONE (08:17)
[2023-10-14] MEDS: ZINC SULFATE 220mg CAP or TAB PO ONE (08:17)
[2023-10-14 08:48] LABS: Base Excess 13.1 mmol/L (-2.0-2.0)
[2023-10-14 10:11] LABS: Base Excess 11.4 mmol/L (-2.0-2.0)
[2023-10-14] MEDS: cefTRIAXone 1GM/50ML D5W 50 ML IV ONE (10:17)
[2023-10-14] MEDS: POTASSIUM EFFERVESENT TAB 25 MEQ PO ONE (10:18)
[2023-10-14 11:48] LABS: Urine Bacteria None Seen /hpf (None Seen)
[2023-10-14 12:15] LABS: Urine Blood Negative /uL (Negative); Urine Clarity Clear (Clear); Urine Color Light-Yellow (Yellow); Urine Protein, UAD Negative (Negative); Urine Specific Gravity 1.019 (1.001-1.035); Urine Urobilinogen Normal (Negative); Urine WBC 2 /hpf (0 - 5); Urine pH 5.5 (5.0-9.0)
[2023-10-14 13:52] VITALS: BP 143/65; PULSE 69; RESP 25; TEMP 98.5; O2SAT 90
== END 2023-10-14 14:19 | disposition short-term general hospital (02) ==
LOC: ER 05:18 → EDBD 05:18 → ER 14:19
DX: J96.00 Acute respiratory failure, unspecified whether with hypoxia or hypercapnia (principal); I12.9 Hypertensive chronic kidney disease with stage 1 through stage 4 chronic kidney disease, or unspecified chronic kidney disease; N18.9 Chronic kidney disease, unspecified; J44.9 Chronic obstructive pulmonary disease, unspecified; I48.91 Unspecified atrial fibrillation; E78.5 Hyperlipidemia, unspecified; K21.9 Gastro-esophageal reflux disease without esophagitis; Z90.710 Acquired absence of both cervix and uterus; Z87.891 Personal history of nicotine dependence; Z20.822 Contact with and (suspected) exposure to COVID-19
CPT/HCPCS: 36415; 36600; 71045; 80053; 81001; 82805; 83735; 83880; 84484; 85025; 85610; 85730; 87426; 93005; 96365; 96366; 96367; 99285; J0456; J0696; 97110; 97116; 99291